=== PATIENT | female | born 1960 | race Native Hawaiian/Other Pacific Islander ===

== ENCOUNTER 2021-03-28 22:07 | Emergency (ER) | payer OTHER ==
[~2021-03-28] VITALS: Ht 160 cm; Wt 108.9 kg
[2021-03-28 22:53] LABS: PLATELET COUNT 184 K/uL (152-353)
[2021-03-28 23:13] VITALS: BP 125/70; TEMP 98.1
[2021-03-29] MEDS ORDERED: LORA1TAB17 PO (09:02)
[2021-03-29] MEDS ORDERED: BENZTROPINE0.5 MG PO (09:03)
[2021-03-29] MEDS ORDERED: DIVALPROEX250 MG PO (09:04)
[2021-03-29] MEDS ORDERED: DIVALPROEX500 MG PO (09:06)
[2021-03-29] MEDS ORDERED: FLUOXETINE HYDR40 MG PO (09:07)
[2021-03-29] MEDS ORDERED: GABA400C2 PO (09:08)
[2021-03-29] MEDS ORDERED: METOPROLOL25 M1 PO (09:09)
[2021-03-29] MEDS ORDERED: POT CHLORIDE10 MEQ PO (09:10)
[2021-03-29] MEDS ORDERED: PRAVACHOL20 MG PO (09:13)
[2021-03-29] MEDS ORDERED: QUETIAPINE200 MG PO (09:14)
[2021-03-29] MEDS ORDERED: VALSARTAN40 MG PO (09:16)
[2021-03-29] MEDS ORDERED: MECLIZINE25 MG PO (09:18)
[2021-03-29] MEDS ORDERED: [UNRECOGNIZED DRUG - CODE] EX (09:22)
[2021-03-29] MEDS ORDERED: OXYC5TAB53 PO (09:23)
[2021-03-29] MEDS ORDERED: TRAZODONE HYDRO50 MG PO (10:07)
[2021-03-29] MEDS ORDERED: [UNRECOGNIZED DRUG - OTHER] EX (10:31)
[2021-03-29] MEDS ORDERED: SPIRIVA RE2.5 MCG/AC INH (10:32)
[2021-03-29] MEDS ORDERED: TRAZ50TA36 PO (10:33)
[2021-03-29] MEDS ORDERED: FLUTMIS6 INH (10:34)
[2021-03-29] MEDS ORDERED: 904272561 PO (10:35)
[2021-03-29] MEDS ORDERED: ALOPHEN5 MG PO (10:36)
[2021-03-29] MEDS ORDERED: [UNRECOGNIZED DRUG - OTHER] PO (10:37)
[2021-03-29] MEDS ORDERED: GENERLAC10 GM/15 M PO (10:39)
[2021-03-29] MEDS ORDERED: ALBUSOL INH (10:39)
== END 2021-03-28 23:13 | disposition still patient (30) ==
LOC: ED 22:07
PROVIDERS: Emergency Medicine
DX: R46.89 Other symptoms and signs involving appearance and behavior (principal); I10 Essential (primary) hypertension; Z11.52 Encounter for screening for COVID-19; Z04.6 Encounter for general psychiatric examination, requested by authority
CPT/HCPCS: 36415; 80053; 81000; 85027; 87635; 93005; 99283; U0003